=== PATIENT | male | born 1980 | race Caucasian/White ===

== ENCOUNTER 2016-12-11 09:51 | Emergency (ER) | payer BC ==
[~2016-12-11] VITALS: Ht 195.6 cm; Wt 100.0 kg
[2016-12-11 09:54] VITALS: BP 149/98; PULSE 91; RESP 16; TEMP 98.2; O2SAT 98
[2016-12-11 10:07] LABS: BLOOD, URINE NEG (NEG); GLUCOSE,URINE NEG (NEG); KETONE, URINE NEG (NEG); NITRITE,URINE NEG (NEG); PH, URINE 6.5 (5.0-8.5)
[2016-12-11 10:21] LABS: COMMENT (UR) CULT NOT INDICATED; CULTURE IF INDICATED CULT NOT INDICATED; METHOD OF COLLECTION CLEAN CATCH; RBC, URINE 0-3 /hpf (0-3); SQUAMOUS EPITHELIAL CELL URINE 0-5 /hpf (0-5); URINE COLOR YELLOW (YELLW/STRAW)
[2016-12-11] MEDS ORDERED: SODIUM CHLORIDE 0.9% FLUSH 10 ML FLUSH IV FLUSH PRN (10:30)
[2016-12-11 10:51] VITALS: O2SAT 98
[2016-12-11 10:55] LABS: AUTOMATED NEUTROPHIL # 6.9 TH/MM3 (1.8-7.7); BASOPHIL # 0.1 TH/MM3 (0-0.2); BASOPHIL % 1.3 % (0.0-2.0); EOSINOPHIL # 0.3 TH/MM3 (0-0.4); EOSINOPHIL % 2.9 % (0.0-4.0); HEMATOCRIT 44.6 % (39.0-51.0); HEMO FLAGS DIFF FINAL; LYMPH % 14.4 % (9.0-44.0); LYMPHOCYTE # 1.4 TH/MM3 (1.0-4.8); MEAN CELL VOLUME 94.7 FL (80.0-100.0); MEAN CORPUSCULAR HEMOGLOBIN 32.2 PG (27.0-34.0); MONO % 7.2 % (0.0-8.0); NEUT % 74.2 % (16.0-70.0); PLATELET COUNT 219 TH/MM3 (150-450); RED BLOOD COUNT 4.71 MIL/MM3 (4.50-5.90); RED CELL DISTRIBUTION WIDTH 12.5 % (11.6-17.2); WHITE BLOOD COUNT 9.4 TH/MM3 (4.0-11.0)
[2016-12-11 11:01] LABS: CHLORIDE 105 MEQ/L (98-107); POTASSIUM 4.1 MEQ/L (3.5-5.1); SODIUM (NA) 139 MEQ/L (136-145)
[2016-12-11 11:08] LABS: ANION GAP 8 MEQ/L (5-15); BICARBONATE 26.5 MEQ/L (21.0-32.0); BLOOD UREA NITROGEN 16 MG/DL (7-18)
[2016-12-11 11:10] LABS: ALT (GPT) 27 U/L (12-78); AST (GOT) 11 U/L (15-37)
[2016-12-11 11:11] LABS: GLOMERULAR FILTRATION RATE 94 ML/MIN (>89)
[2016-12-11 11:12] LABS: TOTAL BILIRUBIN ADULT 1.1 MG/DL (0.2-1.0)
[2016-12-11 11:13] LABS: ALKALINE PHOSPHATASE 68 U/L (45-117)
[2016-12-11] MEDS ORDERED: CIPR500T2 PO (11:22)
[2016-12-11] MEDS ORDERED: METR-1 PO (11:22)
[2016-12-11] MEDS ORDERED: HYDR-3533 PO (11:22)
--- NOTE | 2016-12-11 11:23 | PD ---
HPI Chief Complaint: Abdominal Pain Time Seen by Provider: 10:29 Travel History International Travel<30 days: No Contact w/Intl Traveler<30days: No Traveled to known affect area: No History of Present Illness HPI 35-year-old male with left lower abdomen pain for about 2 days or so arrives for evaluation. No fever. No similar priors. No testicular pain or hematuria or discharge. The pain is intermittent. At times it's severe. In between painful episodes the pain is very minimal. No diarrhea or vomiting. Onset gradual. PFSH Social History Alcohol Use: No Tobacco Use: No Substance Use: No Allergies-Medications (Allergen,Severity, Reaction): Coded Allergies: No Known Allergies (Unverified , 12/11/16) Reported Meds & Prescriptions Reported Meds & Active Scripts Active Lortab (Hydrocodone-Acetaminophen) 5-325 Mg Tab 1-2 Tab PO Q6H PRN Flagyl (Metronidazole) 500 Mg Tab 500 Mg PO TID 7 Days Ciprofloxacin (Ciprofloxacin HCl) 500 Mg Tab 500 Mg PO BID 7 Days Review of Systems Except as stated in HPI: all other systems reviewed are Neg Physical Exam Narrative GENERAL: 35 yo M, WNWD, NAD SKIN: Warm and dry. HEAD: Atraumatic. Normocephalic. EYES: Pupils equal and round. No scleral icterus. No injection or drainage. ENT: No nasal bleeding or discharge. Mucous membranes pink and moist. NECK: Trachea midline. No JVD. CARDIOVASCULAR: Regular rate and rhythm. RESPIRATORY: No accessory muscle use. Clear to auscultation. Breath sounds equal bilaterally. GASTROINTESTINAL: LLQ TTP. Soft otherwise. MUSCULOSKELETAL: Extremities without clubbing, cyanosis, or edema. No obvious deformities. NEUROLOGICAL: Awake and alert. No obvious cranial nerve deficits. Motor grossly within normal limits. Five out of 5 muscle strength in the arms and legs. Normal speech. PSYCHIATRIC: Appropriate mood and affect; insight and judgment normal. Data Data Last Documented VS Vital Signs Date Time Temp Pulse Resp B/P Pulse Ox O2 Delivery O2 Flow Rate FiO2 12/11/16 11:43 84 16 137/87 99 Room Air 12/11/16 09:54 98.2 VS reviewed Orders Urinalysis - C+S If Indicated (12/11/16 09:58) Complete Blood Count With Diff (12/11/16 10:29) Comprehensive Metabolic Panel (12/11/16 10:29) Lipase (12/11/16 10:29) Ct Abd/Pel W/O Iv Contrast (12/11/16 10:29) Iv Access Insert/Monitor (12/11/16 10:29) Ecg Monitoring (12/11/16 10:29) Oximetry (12/11/16 10:29) Sodium Chloride 0.9% Flush (Ns Flush) (12/11/16 10:30) Ciprofloxacin (Cipro) (12/11/16 11:30) Metronidazole (Flagyl) (12/11/16 11:30) Labs Laboratory Tests Test 12/11/16 12/11/16 09:55 10:44 Urine Collection Type CLEAN CATCH Urine Color YELLOW Urine Turbidity CLEAR Urine pH 6.5 Urine Specific Golf 1.009 Urine Protein NEG mg/dL Urine Glucose (UA) NEG mg/dL Urine Ketones NEG mg/dL Urine Occult Blood NEG Urine Nitrite NEG Urine Bilirubin NEG Urine Leukocyte Esterase NEG Urine RBC 0-3 /hpf Urine Squamous Epithelial 0-5 /hpf Cells Microscopic Urinalysis Comment CULT NOT INDICATED Urine Collection Time 09:55 White Blood Count 9.4 TH/MM3 Red Blood Count 4.71 MIL/MM3 Hemoglobin 15.2 GM/DL Hematocrit 44.6 % Mean Corpuscular Volume 94.7 FL Mean Corpuscular Hemoglobin 32.2 PG Mean Corpuscular Hemoglobin 34.0 % Concent Red Cell Distribution Width 12.5 % Platelet Count 219 TH/MM3 Mean Platelet Volume 8.8 FL Neutrophils (%) (Auto) 74.2 % Lymphocytes (%) (Auto) 14.4 % Monocytes (%) (Auto) 7.2 % Eosinophils (%) (Auto) 2.9 % Basophils (%) (Auto) 1.3 % Neutrophils # (Auto) 6.9 TH/MM3 Lymphocytes # (Auto) 1.4 TH/MM3 Monocytes # (Auto) 0.7 TH/MM3 Eosinophils # (Auto) 0.3 TH/MM3 Basophils # (Auto) 0.1 TH/MM3 CBC Comment DIFF FINAL Differential Comment Sodium Level 139 MEQ/L Potassium Level 4.1 MEQ/L Chloride Level 105 MEQ/L Carbon Dioxide Level 26.5 MEQ/L Anion Gap 8 MEQ/L Blood Urea Nitrogen 16 MG/DL Creatinine 0.91 MG/DL Estimat Glomerular Filtration 94 ML/MIN Rate Random Glucose 94 MG/DL Calcium Level 8.9 MG/DL Total Bilirubin 1.1 MG/DL Aspartate Amino Transf 11 U/L (AST/SGOT) Alanine Aminotransferase 27 U/L (ALT/SGPT) Alkaline Phosphatase 68 U/L Total Protein 7.5 GM/DL Albumin 3.8 GM/DL Lipase 104 U/L [facility] Medical Decision Making Medical Screen Exam Complete: Yes Emergency Medical Condition: Yes Medical Record Reviewed: Yes Differential Diagnosis Constipation, Gastritis, Acute Cholecystitis, Biliary Colic, Pancreatitis, YUSUF , Hepatitis, Bowel Obstruction, Cystitis, Mesenteric Ischemia, AAA, Appendicitis , Renal Stone/Hydronephrosis, GERD, perforated viscous Narrative Course CBC & BMP Diagram 12/11/16 10:44 LFTs normal Lipase normal UA normal CT: Diverticulitis wihout abscess of LLQ; appendicolith o nthe R w/o inflammatory change There is no suprapubic or RLQ or R abdomen tenderness to deep palpation. Appendicitis is considered unlikely. The patient is resting comfortably and feels better, is alert and in no distress. The patients results and examination findings were discussed. The repeat examination is unremarkable and benign. The history, exam, diagnostic testing, and current condition do not suggest any significant pathology to warrant further testing, continued ED treatment, admission, or surgical evaluation at this point. The vital signs have been stable. The patient does not have uncontrollable pain, intractable vomiting, or other significant symptoms. The patient's condition is stable and appropriate for discharge. The patient will pursue further outpatient evaluation with a primary care physician or other designated or consulting physician as indicated in the discharge instructions. The patient expressed understanding and was agreeable with this plan. Diagnosis Primary Impression: Diverticulitis Qualified Code: K57.32 - Diverticulitis of large intestine without perforation or abscess without bleeding Referrals: DR SLOO 2 days Additional Instructions: You have a choice when it comes to health care, and we are glad that you chose [facility]. Hopefully, we have met your expectations on today's visit. You are welcome to return to [facility] at any time, as we are committed to meeting the health care needs of our community. Med/Other Pt SpecificInfo: Prescription(s) given Scripts Hydrocodone-Acetaminophen (Lortab)5-325 Mg Tab1-2 Tab PO Q6H PRN (PAIN SCALE 6 TO 10) #20 TAB Ref 0 Prov:Galo Escalante MD 12/11/16 Metronidazole (Flagyl)500 Mg Mer346 Mg PO TID 7 Days Ref 0 Prov:Galo Escalnate MD 12/11/16 Ciprofloxacin 500 Mg Woh054 Mg PO BID 7 Days Ref 0 Prov:Galo Escalante MD 12/11/16 Disposition: 01 DISCHARGE HOME Condition: Stable Galo Escalante MD December 11, 2016 11:23
[2016-12-11] MEDS ORDERED: CIPROFLOXACIN 500 MG TAB PO ONE (11:30)
[2016-12-11] MEDS ORDERED: metroNIDAZOLE 500 MG TAB PO ONE (11:30)
--- NOTE | 2016-12-11 11:30 | RADHPO ---
EXAM DATE/TIME: 12/11/2016 10:56 [facility] COMPARISON: No previous studies available for comparison. INDICATIONS : Lower quadrant pain for 2 days. ORAL CONTRAST: No oral contrast ingested. RADIATION DOSE: 21.08 CTDIvol (mGy) MEDICAL HISTORY : None SURGICAL HISTORY : None. ENCOUNTER: Initial ACUITY: 2 days PAIN SCALE: 5/10 LOCATION: Bilateral lower quadrant TECHNIQUE: Volumetric scanning of the abdomen and pelvis was performed. Using automated exposure control and ad justment of the mA and/or kV according to patient size, radiation dose was kept as low as reasonably achievable to obtain optimal diagnostic quality images. FINDINGS: Lung bases are clear. The liver is free of focal defects. Spleen, pancreas, adrenals unremarkable. The left kidney contains a 1 cm low density lesion. Nonspecific and incompletely evaluated on today's exam. The right kidney contains a similar cortical abnormality measuring 3 cm. Both of these are probably cysts but I cannot confirm that on today's exam. There are no stones identified. There is an appendicolith noted with a normal appearing appendix. There is diverticulitis in the sigmoid colon at the level of the iliac crest with mesenteric indurati on. There is no diverticular abscess. Pelvic contents otherwise unremarkable. CONCLUSION: 1. Diverticulitis without abscess left lower quadrant. 2. Appendicolith on the right without inflammatory changes. 3. Apparent renal cysts, incompletely evaluated on today's exam. Kole Blackwood MD FACR on December 11, 2016 at 11:17 Board Certified Radiologist. This report was verified electronically.
[2016-12-11 11:43] VITALS: BP 137/87; PULSE 84; RESP 16; O2SAT 99
== END 2016-12-11 11:46 | disposition home or self-care (01) ==
LOC: PHED 09:51
DX: K57.32 Diverticulitis of large intestine without perforation or abscess without bleeding (principal)
CPT/HCPCS: 74176; 80053; 81001; 83690; 85025; 99284